=== PATIENT | female | born 1985 | race Two or more races ===

== ENCOUNTER 2019-01-24 20:45 | Inpatient (IN) | payer OTHER ==
[~2019-01-24] VITALS: Ht 157.5 cm; Wt 83.9 kg
--- NOTE | 2019-01-24 | NUR ---
RN NOTES, INFORMED MD THAT PATIENT IS ADMITTED FROM [facility] AND F/U OLIVER ANDERSON, IMFORMED ALSO THAT 1 UNIT OF PRBC WAS TRANFUSED AT [facility], REPLED WITH NEW ORDER TO DO H&H AND TYPE AND CREEN STAT, NOTED AND CARRIED OUT.PATIENT Addendum: 01/25/19 at 0131 by NICKI JOHNSON RN WRONG TIME
--- NOTE | 2019-01-24 23:20 | NUR ---
FITTER MECHANIC ADMISSION NOTES, RECEIVED 33 YEAR OLD FEMALE DIRECT ADMIT FROM [facility] VIA GURNEY ACCOMPANIED BY 3 EMS IN REGULAR AMBULANCE IN STABLE CONDITION, ADJOINING DR KRYSTAL FORTUNE MD, WITH ADMITTING DX ANEMIA AND RIGHT SHOULDER TENDONITIS, H/O ASTHMA, PEPTIC ULCER, AND , A/O X4 ABLE TO VERBALIZED NEED, BREATHING EVEN AND UNLABORED, NO SOB/ACUTE DISTRESS NOTED AT THIS TIME, WITH VS 98.8, 108/51, 85, 99% RA, 18, 0/10, S/P ONE UNIT OF PRBCS IN [facility], AFEBRILE, SKIN INTACT, NSR IN TELE MONITOR, IV ACCESS IN LEFT AC 18G PATENT AND INTACT, BED LOCKED AND IN LOW POSITION, WILL CONTINUE TO MONITOR CLOSELY, AND WILL F/U WITH MD FOR FURTHER ORDERS.
--- NOTE | 2019-01-24 23:43 | NUR ---
RN NOTES, INFORMED MD THAT PATIENT IS ADMITTED FROM [facility] AND F/U WITH ORDERS, INFORMED ALSO THAT 1 UNIT OF PRBC WAS TRANSFUSED AT [facility], MD REPLIED WITH NEW ORDER TO DO H&H AND TYPE AND SCREEN STAT, NOTED AND CARRIED OUT.
[2019-01-25] VITALS (15 sets, daily range): BP systolic 104–130; BP diastolic 50–84
[2019-01-25] MEDS ORDERED: MAGNESIUM HYDROXIDE 30 ML UDC PO PRN (00:30)
[2019-01-25] MEDS ORDERED: Z GUARD REMEDY 2 OZ OINT TP PRN (00:30)
[2019-01-25] MEDS ORDERED: ONDANSETRON HCL/PF 4 MG/2 ML VIAL IVP PRN (00:30)
[2019-01-25] MEDS ORDERED: HYDROCODONE/APAP 5/325MG 1 EACH TABLET PO PRN ×2 (00:30→11:00)
[2019-01-25 00:31] LABS: HEMOGLOBIN 6.9 g/dL (11.5-14.8)
--- NOTE | 2019-01-25 00:57 | NUR ---
RN NOTES, REPORT TO KRYSTAL ROJO CRITICAL LEVEL FOR H&H 6.05/16, AND RECEIVED A NEW ORDER TO TRANSFUSE 2UNITS OF PRBC, NOTED AND CARRIED OUT, LAB AWARE.
[2019-01-25] MEDS: IV NS 0.9% 1,000 ML IV SCH ×3 (01:03→18:48)
--- NOTE | 2019-01-25 07:00 | NUR ---
RN NOTES NO SIGNIFICANT CHANGE IN CONDITION, PATIENT STABLE WITH STABLE VS, ONE UNIT OF PRBCS INFUSED, ONE MORE TO INFUSE, IS READY FROM LAB AT THIS TIME, WILL ENDORSE TO ONCOMING NURSE.
--- NOTE | 2019-01-25 07:55 | NUR ---
TRANSFER OF CARE NOTE PT WAS ENDORSED TO LA PEREZ FOR LAMONT AT THIS TIME
--- NOTE | 2019-01-25 08:00 | NUR ---
SECURITY PUBLIC SAFETY OFFICER NOTE RECEIVED REPORT FROM CARLOTA PEREZ FOR LAMONT.PATIENT AXOX4.NO SOB NO DISTRESS NOTED.ON TELE MONITOR SR.IV ON LAC INTACT NAD PATENT.BED IS LOCKED AND IN LOW POSITION CALL LIGHT IN REACH.SRX2.WILL CONTINUE TO MONITOR.
--- NOTE | 2019-01-25 10:40 | NUR ---
PLASTERER SPOT NOTE GOT CALL FROM TO STOP BLOOD TRANSFUSION.AND TO DO STAT LABS.CARRIED OUT ORDER.
--- NOTE | 2019-01-25 11:29 | NUR ---
report taken form another rn for further care. awaiting for the result fo the cbc.blood transfusion 3rd unit is stopped when recieved.
--- NOTE | 2019-01-25 11:30 | NUR ---
CONTROL SYSTEMS DESIGNER NOTE REPORT GIVEN TO GWEN PEREZ FOR LAOMNT.
--- NOTE | 2019-01-25 11:42 | NUR ---
ambulated to the bathhroom and voided freely. specimen for test collected and will be sent to lab
--- NOTE | 2019-01-25 11:45 | NUR ---
lab called to come and collect the cbc stat ordered
[2019-01-25 12:26] LABS: BASOPHILS % (AUTO) 0.5 % (0.0-2.0); EOSINOPHILS % (AUTO) 1.6 % (0.0-6.0); HEMATOCRIT 29 % (33-45); HEMOGLOBIN 8.7 g/dL (11.5-14.8); LYMPHOCYTES # (AUTO) 1.5 /CMM (0.8-4.8); LYMPHOCYTES % (AUTO) 19.8 % (20.0-44.0); MEAN CORPUSCULAR HGB CONC 30 g/dl (31.0-36.0); MEAN CORPUSCULAR VOLUME 62 fL (82-100); MONOCYTES # (AUTO) 0.7 /CMM (0.1-1.30); MONOCYTES % (AUTO) 9.2 % (2.0-12.0); NEUTROPHILS # (AUTO) 5.3 /CMM (1.8-8.9); NEUTROPHILS % (AUTO) 68.9 % (43.0-81.0); PLATELET COUNT (AUTO) 227 /CMM (150-450); RED BLOOD CELL COUNT(AUTO) 4.67 MIL/uL (4.0-5.2); WHITE BLOOD COUNT (AUTO) 7.8 K/uL (4.3-11.0)
[2019-01-25 12:57] LABS: CALCIUM, SERUM 8.1 mg/dL (8.5-10.1); CREATININE 0.5 mg/dL (0.6-1.3); MAGNESIUM 2.1 mg/dL (1.8-2.4); PHOSPHORUS 2.8 mg/dL (2.5-4.9); POTASSIUM 3.6 mmol/L (3.5-5.1)
--- NOTE | 2019-01-25 13:01 | NUR ---
jen nbg 8.7. Addendum: 01/25/19 at 1302 by GWEN VARGAS RN test negative
[2019-01-25 13:33] LABS: EOSINOPHILS % (MANUAL) 1 % (0-4); LYMPHOCYTES % (MANUAL) 19 % (16-48); MONOCYTES % (MANUAL) 4 % (0-11.0); NEUTROPHILS % (MANUAL) 76 (42-76)
--- NOTE | 2019-01-25 14:12 | NUR ---
Dr Sosa as theater manager seen patient and with orders and carried out
--- NOTE | 2019-01-25 15:45 | NUR ---
third unit of blood disposed of as the no further orders to transfuse a third unit of prbc. latest hbg 8.7
[2019-01-25] MEDS: MAG HYDROX/AL HYDROX/SIMETH 30 ML UDC PO PRN (16:10)
--- NOTE | 2019-01-25 16:13 | NUR ---
patient with complaints of epigastric discomfort and requested for coffee with cream and given. maaalox dose given as needed for dyspepsia
[2019-01-25] MEDS: ACETAMINOPHEN 325 MG TABLET PO PRN ×2 (18:51→23:49)
--- NOTE | 2019-01-25 18:53 | NUR ---
patient ate dinner regular diet and claims she feels abdominal discomfort, with pain to the [facility] shoulder 510.norco was disocntinued and tylenol dose given. will report to the [facility] shift rn to inform the physician that patient is unable to tolerate dinner.
--- NOTE | 2019-01-25 19:03 | NUR ---
report given to the day care provider rn that patient is unable to tolerate the nregular diet and needs to change it to something soft , and with tendonitis of the right shoulder, with no medications to be given for pain to right shoulder.
--- NOTE | 2019-01-25 19:57 | NUR ---
TELE/RN OPENING NOTES RECEIVED PATIENT IN BED, AWAKE, ALERT X4, ABLE TO VERBALIZE NEEDS, REPORTED NO PAIN WHEN RIGHT SHOULDER DOESNT MOVE, LAST PAIN MEDICATION TYLENOL 650MG PO GIVEN EARLY SHIFT BY AM RN. CALL LIGHTS WITHIN REACH, BED LOCKED. FLUIDS PROVIDED WILL MONITOR,
[2019-01-25] MEDS ORDERED: SOD FERRIC GLUC 125 MG in IV NS 0.9% 100 ML IV SCH (22:30)
--- NOTE | 2019-01-25 23:03 | NUR ---
TELE/ORDER CHARGE NURSE AND CREDIT SUPPORT COUNSELOR WAS INFORMED REGARDING NEW ORDER SODIUM FERRIC GLU ORDER BY MD AMANDA, UNABLE TO OBTAIN MEDICATION AT NIGHT LOCKER PER CREDIT SUPPORT COUNSELOR, MD RICE MADE AWARE, ORDER A ONE TIME ORDER FERROUS SULFATE 325 MG PO AND TO START IV SODIUM FERRIC GLUC CHANDA INSTEAD. ORDER TO CARRY OUT.
[2019-01-25] MEDS ORDERED: FERROUS SULFATE (325 MG) 325 MG/TAB TABLET PO ONE (23:30)
[2019-01-25] MEDS ORDERED: PANTOPRAZOLE 40 MG VIAL ONE (23:32)
[2019-01-25] MEDS: PANTOPRAZOLE 40 MG VIAL IV SCH (23:45)
--- NOTE | 2019-01-25 23:50 | NUR ---
tele/rn notes pain medication given 650 mg po requeted by patient.
[2019-01-26] VITALS: BP 109/57
[2019-01-26] MEDS: IV NS 0.9% 1,000 ML IV SCH ×3 (04:19→22:08)
[2019-01-26 05:30] VITALS: BP 110/62
--- NOTE | 2019-01-26 06:53 | NUR ---
TELE/RN CLOSING NOTES PATIENT ABLE TO SLEEP DURING THE NIGHT, RESPIRATIONS EVEN AND UNLABORED, SKIN WARM TO TOUCH. MONITORED FOR ANY CHANGES. WILL ENDORSE TO AM RN FOR LAMONT.
[2019-01-26 07:08] LABS: BASOPHILS # (AUTO) 0.1 /CMM (0.0-0.2); BASOPHILS % (AUTO) 0.9 % (0.0-2.0); HEMATOCRIT 30 % (33-45); HEMOGLOBIN 8.9 g/dL (11.5-14.8); LYMPHOCYTES # (AUTO) 1.4 /CMM (0.8-4.8); LYMPHOCYTES % (AUTO) 20.5 % (20.0-44.0); MEAN CORPUSCULAR HGB CONC 30 g/dl (31.0-36.0); MEAN CORPUSCULAR VOLUME 63 fL (82-100); MONOCYTES # (AUTO) 0.7 /CMM (0.1-1.30); MONOCYTES % (AUTO) 9.3 % (2.0-12.0); NEUTROPHILS # (AUTO) 4.7 /CMM (1.8-8.9); NEUTROPHILS % (AUTO) 67.3 % (43.0-81.0); PLATELET COUNT (AUTO) 224 /CMM (150-450); RED BLOOD CELL COUNT(AUTO) 4.81 MIL/uL (4.0-5.2)
--- NOTE | 2019-01-26 07:15 | NUR ---
GLASSWORKER OPENING NOTES RECEIVED REPORT FROM DEPLOYMENT TECHNICIAN RN. PT IS A&OX4. PT IS ABLE TO MAKE NEEDS KNOWN. PT HAS A 20 GAUGE IV RUNNING NS @100ML/HR. PT IS CURRENTLY SLEEPING WITH NO OBVIOUS SIGNS OF SOB OR PAIN NOTED AT PRESENT TIME. BED IS LOCKED AND IN LOWEST POSITION WILL CONTINUE TO MONITOR.
[2019-01-26 07:58] LABS: CREATININE 0.6 mg/dL (0.6-1.3); MAGNESIUM 2.3 mg/dL (1.8-2.4); POTASSIUM 4.2 mmol/L (3.5-5.1)
[2019-01-26 08:00] VITALS: BP 115/66
[2019-01-26] MEDS ORDERED: SOD FERRIC GLUC 125 MG in IV NS 0.9% 100 ML IV SCH (08:00)
--- NOTE | 2019-01-26 08:12 | NUR ---
CALLED RX FOR FERRLECIT. WAS TOLD PHARMACIST WAS NOT IN YET TO MIX FERRLECIT WILL BE BROUGHT FERRLECIT WHEN IT BECOMES AVAILABLE.
[2019-01-26 08:49] LABS: BAND % (MANUAL) 3 % (0.0-5.0); LYMPHOCYTES % (MANUAL) 16 % (16-48); MONOCYTES % (MANUAL) 6 % (0-11.0); NEUTROPHILS % (MANUAL) 75 (42-76)
[2019-01-26] MEDS: PANTOPRAZOLE 40 MG VIAL IV SCH (09:00)
[2019-01-26 12:00] VITALS: BP 125/72
[2019-01-26] MEDS: ACETAMINOPHEN 325 MG TABLET PO PRN (15:04)
[2019-01-26 16:00] VITALS: BP 121/67
--- NOTE | 2019-01-26 19:27 | NUR ---
DIPLOMA MEDICAL ASSISTANT CLOSING NOTES GAVE REPORT TO MAXILLOFACIAL SURGEON RN. PT IS A&OX4. PT IS ABLE TO MAKE NEEDS KNOWN. PT HAS A 20 GAUGE IV RUNNING NS @100ML/HR. PT IS CURRENTLY SLEEPING WITH NO OBVIOUS SIGNS OF SOB OR PAIN NOTED AT PRESENT TIME. BED IS LOCKED AND IN LOWEST POSITION WILL ENDORSE CONTINUITY OF CARE TO MAXILLOFACIAL SURGEON.
--- NOTE | 2019-01-26 19:30 | NUR ---
RN NOTES RECEIVED PT. AWAKE ON BED, A/OX4, AMBULATORY, SR ON TELE MONITOR HR-79, DENIES PAIN, NO SOB, [facility], [id number], CONTINUE TO MONITOR
--- NOTE | 2019-01-26 20:25 | NUR ---
RN NOTES PT. ASKED HER IV ACCESS TO BE CHANGED, NEW IV LINE INSERTED OMN THE LEFT FOREARM GAUGE 22
[2019-01-26 20:46] VITALS: BP 125/57
[2019-01-27 00:29] VITALS: BP 112/69
[2019-01-27] MEDS: MAG HYDROX/AL HYDROX/SIMETH 30 ML UDC PO PRN (01:48)
--- NOTE | 2019-01-27 01:48 | NUR ---
RN NOTES PT. COMPLAINED OF DYSPEPSIA- MAALOX 30ML PO GIVEN ORDERED
[2019-01-27] MEDS: ACETAMINOPHEN 325 MG TABLET PO PRN ×2 (01:50→22:01)
--- NOTE | 2019-01-27 01:50 | NUR ---
RN NOTES PT. ASKED FOR TYLENOL, TYLENOL 650MG PO GIVEN ORDERED
[2019-01-27] MEDS: ZOLPIDEM TARTRATE 5 MG TABLET PO PRN ×2 (02:05→23:57)
--- NOTE | 2019-01-27 02:10 | NUR ---
RN NOTES PT. ASKED FOR SLEEPING PILL- AMBIEN 5 MG PO GIVEN ORDERED, V/S STABLE
[2019-01-27 04:00] VITALS: BP 105/54
--- NOTE | 2019-01-27 06:28 | NUR ---
RN NOTES SLEEPING BUT AROUSABLE, DENIES PAIN, NO SOB, CALL LIGHT WITHIN REACH, SIDERIALSUPX2, PT. NEEDS ATTENDED
--- NOTE | 2019-01-27 07:15 | NUR ---
EXTENSION EDUCATOR OPENING NOTES RECEIVED REPORT FROM BORING MACHINE SET UP OPERATOR JIG RN. PT IS A&OX4. PT IS ABLE TO MAKE NEEDS KNOWN. PT HAS A 22 GAUGE IV RUNNING NS @100ML/HR. PT IS CURRENTLY SLEEPING WITH NO OBVIOUS SIGNS OF SOB OR PAIN NOTED AT PRESENT TIME. BED IS LOCKED AND IN LOWEST POSITION WILL CONTINUE TO MONITOR.
[2019-01-27 08:00] VITALS: BP 114/67
[2019-01-27] MEDS: PANTOPRAZOLE 40 MG VIAL IV SCH (08:42)
[2019-01-27] MEDS: IV NS 0.9% 1,000 ML IV SCH ×2 (11:37→23:00)
[2019-01-27 12:00] VITALS: BP 101/63
[2019-01-27] MEDS: SOD FERRIC GLUC 125 MG in IV NS 0.9% 100 ML IV SCH (14:11)
[2019-01-27 16:00] VITALS: BP 134/59
--- NOTE | 2019-01-27 18:51 | NUR ---
RN MS CLOSING NOTES GAVE REPORT TO INDUSTRIAL ENGINEERING ANALYST RN. PT IS A&OX4. PT IS ABLE TO MAKE NEEDS KNOWN. PT HAS A 22 GAUGE IV RUNNING NS @100ML/HR. PT IS CURRENTLY AWAKE WITH NO OBVIOUS SIGNS OF SOB OR PAIN NOTED AT PRESENT TIME. BED IS LOCKED AND IN LOWEST POSITION WILL ENDORSE CONTINUITY OF CARE TO INDUSTRIAL ENGINEERING ANALYST.
--- NOTE | 2019-01-27 19:00 | NUR ---
MS RN OPENING NOTES Received patient in bed, alert, oriented x 4, able to make needs known, at bedside. Breathing even and unlabored, not in any distress, on room air. No complaints at this time. Safety measures in place; call light within easy reach, bed in low, locked position. Patient stable as endorsed by the AM RN. Will continue to monitor accordingly
[2019-01-27 20:00] VITALS: BP 115/62
--- NOTE | 2019-01-27 22:02 | NUR ---
RN NOTES Patient requested for tylenol for mild pain. Tylenol 650mg PO given as ordered.
--- NOTE | 2019-01-27 23:58 | NUR ---
RN NOTES Patient requested for a sleeping tablet, ambien 5mg PO given as ordered.
[2019-01-28 04:00] VITALS: BP 116/49
--- NOTE | 2019-01-28 06:23 | NUR ---
MS RN CLOSING NOTES Patient in bed, awake. Alert, oriented x 4. at bedside. Breathing even and unlabored. Not in any distress. Peripheral IV infusing at 100mL/hr. No complaints at this time. No acute changes overnight. All needs attended. Will endorse LAMONT to oncoming RN.
--- NOTE | 2019-01-28 07:07 | NUR ---
MS RN OPENING NOTE RECEIVED PT. A/OX4. NO ACUTE DISTRESS OR SOB NOTED. IV SITE L FA G#22 RUNNING NS @100mL/HR. PATIENT DENIES PAIN, NUMBNESS OR TINGLING FOR RIGHT UPPER EXTREMITY. DENIES DIZZINESS. IV SITE L FA 22G, C/D/I, NS RUNNING @100mL/HR, NO S/S INFILTRATION. AT BEDSIDE. BED LOCKED, LOW, SIDE RAILS UPX2, CALL LIGHT WITHIN REACH. PATIENT ABLE TO MAKE NEEDS KNOWN. WILL CONTINUE TO MONITOR
[2019-01-28 08:00] VITALS: BP 120/67
[2019-01-28] MEDS ORDERED: PANTOPRAZOLE 40 MG TABLET.DR PO SCH (08:35)
[2019-01-28] MEDS: IV NS 0.9% 1,000 ML IV SCH (09:18)
[2019-01-28] MEDS: SOD FERRIC GLUC 125 MG in IV NS 0.9% 100 ML IV SCH (14:36)
--- NOTE | 2019-01-28 16:00 | NUR ---
RN D/C NOTE RECEIVED ORDERS FOR D/C TO HOME. PATIENT STABLE. PATIENT EDUCATED ON REQUIRED MATERIALS. MD ORDERS PROVIDED. NO PRESCRIPTIONS OR WOUND PICTURES TO BE TAKEN. BELONGINGS CHECKLIST SIGNED AND PLACED IN CHART. IV REMOVED. TO DRIVE HOME.
== END 2019-01-28 15:10 | disposition home or self-care (01) | DRG 241 ==
LOC: TELE1 23:02 → MEDSG1 01-27 12:30
PROVIDERS: ADMIT Internal Medicine; ATTEND Internal Medicine
PROC: 30233N1 Transfusion of Nonautologous Red Blood Cells into Peripheral Vein, Percutaneous Approach (ICD-10-PCS; principal; 2019-01-25)
DX: K25.9 Gastric ulcer, unspecified as acute or chronic, without hemorrhage or perforation (principal); D50.0 Iron deficiency anemia secondary to blood loss (chronic); E78.5 Hyperlipidemia, unspecified; M75.90 Shoulder lesion, unspecified, unspecified shoulder; Z87.11 Personal history of peptic ulcer disease; T39.395A Adverse effect of other nonsteroidal anti-inflammatory drugs [NSAID], initial encounter; Y92.89 Other specified places as the place of occurrence of the external cause
CPT/HCPCS: 36415; 73200-TC; 76856-TC; 80048-TC; 80061-TC; 83540-TC; 83735-TC; 84100-TC; 84703-TC; 85025-TC; 85027-TC; 85610-TC; 86850-TC; 86921-TC; 87081-TC; C9113; G0378; J2916; J7030; J7050; P9016-BL

== ENCOUNTER 2019-10-13 17:30 | Emergency (ER) | payer OTHER ==
[~2019-10-13] VITALS: Ht 154.9 cm; Wt 86.2 kg
[2019-10-13 17:42] VITALS: BP 131/71
--- NOTE | 2019-10-13 19:38 | NUR ---
Patient discharged to home in stable condition. Written and verbal after care instructions given. Patient verbalizes understanding of instruction.
== END 2019-10-13 19:40 | disposition home or self-care (01) ==
LOC: ER 17:34
DX: J20.9 Acute bronchitis, unspecified (principal); Z98.890 Other specified postprocedural states; Z88.5 Allergy status to narcotic agent
CPT/HCPCS: 71045-TC

== ENCOUNTER 2022-07-30 09:45 | Emergency (ER) | payer OTHER ==
[~2022-07-30] VITALS: Ht 157.5 cm; Wt 77.1 kg
[2022-07-30 10:03] VITALS: BP 134/81
[2022-07-30] MEDS ORDERED: BENZ-13 PO (12:33)
[2022-07-30] MEDS ORDERED: ALBU18HF2 INH (12:33)
== END 2022-07-30 12:56 | disposition home or self-care (01) ==
LOC: ER 09:49
DX: R05.9 Cough, unspecified (principal); J45.909 Unspecified asthma, uncomplicated; R91.8 Other nonspecific abnormal finding of lung field; Z20.822 Contact with and (suspected) exposure to COVID-19
CPT/HCPCS: 99284; 71045; 87426; C9803

== ENCOUNTER 2022-10-20 22:48 | Emergency (ER) | payer OTHER ==
[~2022-10-20] VITALS: Ht 157.5 cm; Wt 81.6 kg
[~2022-10-20 22:48] MED LIST: ALBU18HF2 INH; BENZ-13 PO
--- NOTE | 2022-10-20 23:00 | NUR ---
TO ER BED 2, BIBSELF C/O BILATERAL CHEEK NUMBNESS SINCE 2129. -NEURO DEFICIT. AAO4, BREATHING EVEN AND NON LABORED, CONNECTED TO MONITOR, AWAITING MD ORDERS
[2022-10-20 23:35] LABS: BASOPHILS % (AUTO) 0.4 % (0.0-2.0); EOSINOPHILS % (AUTO) 6.2 % (0.0-6.0); HEMATOCRIT 32 % (33-45); LYMPHOCYTES # (AUTO) 1.3 K/uL (0.8-4.8); LYMPHOCYTES % (AUTO) 21.2 % (20.0-44.0); MEAN CORPUSCULAR HGB CONC 28 g/dl (31.0-36.0); MEAN CORPUSCULAR VOLUME 60 fL (82-100); MONOCYTES # (AUTO) 0.8 K/uL (0.1-1.30); MONOCYTES % (AUTO) 12.9 % (2.0-12.0); NEUTROPHILS # (AUTO) 3.7 K/uL (1.8-8.9); NEUTROPHILS % (AUTO) 59.3 % (43.0-81.0); PLATELET COUNT (AUTO) 265 K/uL (150-450); RED BLOOD CELL COUNT(AUTO) 5.27 MIL/uL (4.0-5.2); WHITE BLOOD COUNT (AUTO) 6.2 K/uL (4.3-11.0)
[2022-10-20 23:53] LABS: CALCIUM, SERUM 8.6 mg/dL (8.5-10.1); CREATININE 0.6 mg/dL (0.6-1.3); MAGNESIUM 2.1 mg/dL (1.8-2.4); POTASSIUM 3.3 mmol/L (3.5-5.1)
[2022-10-21] MEDS ORDERED: POTASSIUM CHLORIDE 20 MEQ TAB.PRT.SR PO ONE ×2 (00:12→00:30)
--- NOTE | 2022-10-21 00:14 | NUR ---
Patient discharged to home in stable condition. Written and verbal after care instructions given. Patient verbalizes understanding of instruction.
[2022-10-21 00:15] VITALS: BP 138/78
== END 2022-10-21 00:15 | disposition home or self-care (01) ==
LOC: ER 22:48
DX: R20.2 Paresthesia of skin (principal); J45.909 Unspecified asthma, uncomplicated; D50.0 Iron deficiency anemia secondary to blood loss (chronic); Z98.890 Other specified postprocedural states; Z79.899 Other long term (current) drug therapy; Z88.5 Allergy status to narcotic agent
CPT/HCPCS: 36415; 80048-TC; 83735-TC; 85025-TC

== ENCOUNTER 2023-05-02 02:07 | Emergency (ER) | payer OTHER ==
[~2023-05-02] VITALS: Ht 157.5 cm; Wt 77.1 kg
[2023-05-02 02:27] VITALS: BP 136/87; TEMP 98.2
[2023-05-02] MEDS ORDERED: DIPH25CA83 PO (02:54)
[2023-05-02] MEDS ORDERED: HYDR453.3 TP (02:54)
[2023-05-02 03:13] VITALS: O2SAT 98
== END 2023-05-02 03:16 | disposition home or self-care (01) ==
LOC: ER 02:08
DX: R21 Rash and other nonspecific skin eruption (principal); J45.909 Unspecified asthma, uncomplicated; Z88.8 Allergy status to other drugs, medicaments and biological substances

== ENCOUNTER 2024-07-16 22:00 | Emergency (ER) | payer OTHER ==
[~2024-07-16] VITALS: Ht 157.5 cm; Wt 54.4 kg
[~2024-07-16 22:00] MED LIST changes: +DIPH25CA83 PO; +HYDR453.3 TP
[2024-07-16] MEDS ORDERED: BENZONATATE 100 MG CAPSULE PO ONE (23:06)
[2024-07-16] MEDS ORDERED: BENZ-13 PO (23:09)
[2024-07-16] MEDS ORDERED: ALBU18HF2 INH (23:09)
[2024-07-16] MEDS: BENZONATATE 100 MG CAPSULE PO PRN (23:09)
[2024-07-16 23:14] VITALS: BP 133/88; TEMP 98.7; O2SAT 100
== END 2024-07-16 23:14 | disposition home or self-care (01) ==
LOC: ER 22:04
DX: J02.9 Acute pharyngitis, unspecified (principal); B97.89 Other viral agents as the cause of diseases classified elsewhere; J45.901 Unspecified asthma with (acute) exacerbation; Z88.5 Allergy status to narcotic agent; Z76.0 Encounter for issue of repeat prescription